=== PATIENT | male | born 1995 | race Caucasian/White ===

== ENCOUNTER 2022-01-16 00:17 | Emergency (ER) | payer OTHER ==
[~2022-01-16] VITALS: Ht 172.7 cm; Wt 63.5 kg
--- NOTE | ~2022-01-16 | EMS ---
[address] [address] EMS Patient Care Report Name: IGOR BETANCUR Room #: DEP ABY Rocha#: [id number] Admission: 01/16/22 Attend Phys: Discharge: 01/16/22 Date of : [birth year] Report #: [id number] THIS REPORT FOR: //name// Report Transmitted: 01/19/2022 13:25 EMS Care Summary [place], [place]/[facility] Incident [id number] @ 01/15/2022 23:50 Incident Location [address] [place] [address] Patient IGOR BETANCUR Male, 26 Years 1995 Patient Address Patient History Bipolar II Disorder,Depression,Paranoid Schizophrenia, Patient Allergies No known allergies, Patient Medications None Reported, Chief Complaint DRUG ABUSE Disposition Transported No Lights/[place] [facility] Reason Unknown Problem/Person Down Transported To [facility] Narrative M36 was dispatched for unknown. Arrived on-scene to find 26 yo male in nothing but his underwear at gas station and outside temperature 2 degrees. Patient reported history of psychiatric problems and meth abuse. Patient reported using meth multiple times today and is now unsure where he lives. Patient requested transport to ED for eval. [address] [address] EMS Patient Care Report Name: IGOR BETANCUR Room #: DEP ER Josefina#: [id number] Admission: 01/16/22 Attend Phys: Discharge: 01/16/22 Date of : [birth year] Report #: [id number] Patient was COA x4 and in mild distress. Patient was high on meth. Patient extremities were very cold but did not appear to be rivera bit. Patient was very anxious and nervous. Patient had strange behavior. Patient refused to provide complaints or pertinent negatives. Patient report was obtained and assessment was performed. Patient ambulated into ambulance and sat on bench seat with all safety straps applied. Patient vitals were assessed. Patient was transported routine. Patient ambulated into ED triage area. Patient signed for transport. Patient's RN signed for receiving facility. Patient care and report turned over to RN. M36 returned to service. Initial Vitals @00:06P: 103,R: 18,BP: 153/76,Pain: 0/10,GCS: 15,CO: 0,SpO2: 96,Revised Trauma: 12, @00:10P: 110,R: 18,BP: 148/78,Pain: 0/10,GCS: 15,SpO2: 98,Revised Trauma: 12, Assessments @00:04MENTAL:Other,Time Oriented,Event Oriented,Person Oriented,SKIN:Cold,HEENT:Eyes: Left Pupil: 4-mm,Eyes: Right Pupil: 4-mm,Head/Face: No Abnormalities,Neck/Airway: No Abnormalities,LUNG SOUNDS:General: No Abnormalities,ABDOMEN:General: No Abnormalities,PELVIS//GI:No Abnormalities,EXTREMITIES:Left Arm: No Abnormalities,Right Arm: No Abnormalities,Left Leg: No Abnormalities,Right Leg: No Abnormalities,PULSE:Radial: 2+ Normal,NEURO:No Abnormalities, Impression Behavioral/psychiatric episode Procedures @00:04 ALS Assessment Response: UnchangedSucceeded Timeline 23:49,Call Received 23:49,Dispatch Notified 23:50,Dispatched 23:51,En Route 00:03,On Scene 00:04,At Patient 00:04,ALS Assessment,Response: UnchangedSucceeded, 00:06,BP: 153/76 M,PULSE: 103,RR: 18 R,SPO2: 96 Ox,ETCO2: ,BG: ,PAIN: 0,GCS: 15, 00:09,Depart Scene 00:10,BP: 148/78 M,PULSE: 110,RR: 18 R,SPO2: 98 Ox,ETCO2: ,BG: ,PAIN: 0,GCS: 15, 00:15,At Destination [address] [address] EMS Patient Care Report Name: IGOR BETANCUR Room #: DEP ER Danielle#: [id number] Admission: 01/16/22 Attend Phys: Discharge: 01/16/22 Date of : [birth year] Report #: [id number] 00:21,Call Closed Disclaimer [email or web address] Copyright 2021 [employer] This EMS Care Summary contains data elements from the applicable legal record (which may be displayed differently). It is designed to provide pertinent information for the following purposes: continuity of care, clinical quality, and state data reporting. The complete legal record is available to ED staff and administrators of the receiving hospital in [facility]'s Patient Tracker. All data is provided "as is."
[2022-01-16 00:20] VITALS: BP 145/68
== END 2022-01-16 03:35 | disposition home or self-care (01) ==
LOC: ER 00:17
DX: F15.10 Other stimulant abuse, uncomplicated (principal)